=== PATIENT | male | born 1990 | race Caucasian/White ===

== ENCOUNTER 2017-04-24 19:26 | Observation (INO) | payer MEDICAID ==
[2017-04-24] MEDS ORDERED: Ketorolac 30 MG/ML SDV IM ONE (20:03)
[2017-04-24] MEDS ORDERED: oxyCODONE 5 MG Tab PO ONE (20:03)
[2017-04-24] MEDS ORDERED: oxyCODONE 5 MG Tab ONE (20:09)
[2017-04-24] MEDS ORDERED: Ketorolac 30 MG/ML SDV ONE (20:09)
--- NOTE | 2017-04-24 20:14 | EDM.PDOC ---
ED HPI GENERAL MEDICAL PROBLEM - General Chief Complaint: Lower Extremity Injury/Pain Stated Complaint: INJURY TO RT LEG FROM FALL Time Seen by Provider: 04/24/17 19:45 Source of Information: Reports: Patient History Limitations: Reports: No Limitations - History of Present Illness INITIAL COMMENTS - FREE TEXT/NARRATIVE: This is a 26yo M here for a right lower leg injury. He stepped off a curb last night around 9pm and sprained his ankle. He went home and continued to go to work in the AM for over 10 hours and comes in tonight with increased ankle and calf swelling with constant pain and pressure. Patient denies toe numbness or tingling at this time. Patient able to bear full weight but has a high tolerance for pain. There is swelling of the lower leg to the foot. Denies any chest pain, no shortness of breath and no other concerns. Onset: Gradual Duration: Day(s): Location: Reports: Lower Extremity, Right Quality: Reports: Ache Severity: Mild Improves with: Reports: None Worsens with: Reports: Movement Associated Symptoms: Reports: No Other Symptoms Right Ankle Pain Score (Numeric/FACES): 7 - Related Data Allergies Allergy/AdvReac Type Severity Reaction Status Date / Time amoxicillin Allergy Rash Verified 08/21/15 13:34 Penicillins Allergy Rash Verified 08/21/15 13:34 Home Meds: Home Meds ASA/Acetaminophn/Mag/ALH/Caff [Vanquish] 1 each PO Q4HR PRN 11/06/15 [History] Past Medical History HEENT History: Reports: None Gastrointestinal History: Reports: Diverticulosis Other Gastrointestinal History: Inguinal hernia repair 2005 Genitourinary History: Reports: Renal Calculus Other Genitourinary History: kidney stones, lithotripsy with stent that was removed in right kidney 2010 - Past Surgical History GI Surgical History: Reports: Hernia Repair/Other Male Surgical History: Reports: Kidney Stone Extraction, Lithotripsy (ESWL), Renal Calculus Social & Family History - Family History : Reports: Renal Calculus - Tobacco Use Smoking Status *Q: Never Smoker Years of Tobacco use: 4 Packs/Tins Daily: 0.5 Used Tobacco, but Quit: No Second Hand Smoke Exposure: No - Alcohol Use Days Per Week of Alcohol Use: 1 Number of Drinks Per Day: 2 Total Drinks Per Week: 2 - Recreational Drug Use Recreational Drug Use: No Review of Systems - Review of Systems Review Of Systems: ROS reveals no pertinent complaints other than HPI. ED EXAM, GENERAL - Physical Exam Exam: See Below Exam Limited By: No Limitations General Appearance: Alert, WD/WN, No Apparent Distress Eye Exam: Bilateral Eye: EOMI, PERRL Nose: Normal Inspection Throat/Mouth: Normal Inspection Head: Atraumatic, Normocephalic Neck: Normal Inspection Respiratory/Chest: No Respiratory Distress Cardiovascular: Normal Peripheral Pulses Peripheral Pulses: 2+: Posterior Tibial (L), Posterior Tibial (R), Dorsalis Pedis (L), Dorsalis Pedis (R) GI/Abdominal: Normal Bowel Sounds Extremities: Joint Swelling, Leg Pain, Increased Warmth Neurological: Alert, Oriented, CN II-XII Intact, No Motor/Sensory Deficits Psychiatric: Normal Affect, Normal Mood Skin Exam: Ecchymosis, Increased Warmth Course - Vital Signs Last Recorded V/S: Last Vital Signs Temp 36.8 C 04/24/17 19:50 Pulse 92 04/24/17 19:50 Resp 20 04/24/17 19:50 BP 141/83 H 04/24/17 19:50 Pulse Ox 98 04/24/17 19:50 - Orders/Labs/Meds Orders: Active Orders 24 hr Category Date Time Status Ankle wo Cont Lt [CT] Stat Exams 04/24/17 20:01 Stop Req Lower Extremity wo Cont Rt [CT] Stat Exams 04/24/17 20:01 Taken Meds: Medications Discontinued Medications Generic Name Dose Route Start Last Admin Trade Name Laura PRN Reason Stop Dose Admin Ketorolac Tromethamine 30 mg 04/24/17 20:03 04/24/17 20:05 Toradol IM 04/24/17 20:04 30 mg ONETIME ONE Administration Ketorolac Tromethamine Confirm 04/24/17 20:09 04/24/17 20:59 Toradol Administered 04/24/17 20:10 Not Given Dose 30 mg .ROUTE .STK-MED ONE Morphine Sulfate Confirm 04/24/17 20:57 04/24/17 20:56 Morphine Administered 04/24/17 20:58 2 mg Dose Administration 2 mg .ROUTE .STK-MED ONE Morphine Sulfate 2 mg 04/24/17 20:55 04/24/17 20:57 Morphine IM 04/24/17 20:56 Not Given ONETIME ONE Oxycodone HCl 5 mg 04/24/17 20:03 04/24/17 20:05 Oxycodone PO 04/24/17 20:04 5 mg ONETIME ONE Administration Oxycodone HCl Confirm 04/24/17 20:09 04/24/17 20:59 Oxycodone Administered 04/24/17 20:10 Not Given Dose 5 mg .ROUTE .STK-MED ONE Departure - Departure Time of Disposition: 22:06 Disposition: Refer to Observation Condition: Undetermined Clinical Impression: Compartment syndrome of right lower extremity Qualifiers: Encounter type: initial encounter Qualified Code(s): T79.A21A - Traumatic compartment syndrome of right lower extremity, initial encounter High ankle sprain of right lower extremity Qualifiers: Encounter type: initial encounter Qualified Code(s): S93.431A - Sprain of tibiofibular ligament of right ankle, initial encounter - Discharge Information Referrals: PCP,None [Primary Care Provider] - Forms: ED Department Discharge - Problem List & Annotations (1) Compartment syndrome of right lower extremity SNOMED Code(s): 979985049 Code(s): T79.A21A - TRAUMATIC COMPARTMENT SYNDROME OF R LOW EXTREM, INIT Status: Suspected Priority: High Current Visit: Yes Qualifiers: Encounter type: initial encounter Qualified Code(s): T79.A21A - Traumatic compartment syndrome of right lower extremity, initial encounter (2) High ankle sprain of right lower extremity SNOMED Code(s): 32871987 Code(s): S93.431A - SPRAIN OF TIBIOFIBULAR LIGAMENT OF RIGHT ANKLE, INIT ENCNTR Status: Acute Priority: High Current Visit: Yes Qualifiers: Encounter type: initial encounter Qualified Code(s): S93.431A - Sprain of tibiofibular ligament of right ankle, initial encounter - Problem List Review Problem List Initiated/Reviewed/Updated: Yes - My Orders Last 24 Hours: My Active Orders 04/24/17 20:01 Ankle wo Cont Lt [CT] Stat Lower Extremity wo Cont Rt [CT] Stat - Assessment/Plan Last 24 Hours: My Active Orders 04/24/17 20:01 Ankle wo Cont Lt [CT] Stat Lower Extremity wo Cont Rt [CT] Stat Plan: Called and consulted Dr. Martinez. Discussed possibility of compartment syndrome. Discussed swelling of the right lower extremity and plan for close monitoring and if worsening symptoms we will transfer to ER in [place] for further workup. Discussed elevation, ice and monitoring of symptoms and swelling as observation at this time. Patient agrees with plan of care. We will monitor pain status and hold pain meds to assess severity and progression. Patient placed in observation for monitoring.
[2017-04-24] MEDS ORDERED: Morphine 2 MG/ML Syringe IM ONE ×2 (20:55→22:38)
[2017-04-24] MEDS ORDERED: Morphine 2 MG/ML Syringe ONE (20:57)
[2017-04-25 07:53] VITALS: BP 112/79
[2017-04-25] MEDS ORDERED: Acetaminophen/HYDROcodone 325-5 MG Tab PO ONE (08:42)
--- NOTE | 2017-04-25 09:08 | PCM.DCSUM1 ---
Discharge Summary - Discharge Data Discharge Date: 04/25/17 Discharge Disposition: Home, Self-Care 01 Condition: Fair - Discharge Diagnosis/Problem(s) (1) Compartment syndrome of right lower extremity SNOMED Code(s): 369632614 ICD Code: T79.A21A - TRAUMATIC COMPARTMENT SYNDROME OF R LOW EXTREM, INIT Status: Acute Priority: High Current Visit: Yes Qualifiers: Encounter type: initial encounter Qualified Code(s): T79.A21A - Traumatic compartment syndrome of right lower extremity, initial encounter (2) High ankle sprain of right lower extremity SNOMED Code(s): 85350402 ICD Code: S93.431A - SPRAIN OF TIBIOFIBULAR LIGAMENT OF RIGHT ANKLE, INIT ENCNTR Status: Acute Priority: High Current Visit: Yes Qualifiers: Encounter type: initial encounter Qualified Code(s): S93.431A - Sprain of tibiofibular ligament of right ankle, initial encounter - Patient Instructions Diet: Regular Diet as Tolerated Activity: Apply Ice, Elevate Extremity Driving: Do Not Drive Showering/Bathing: May Shower Notify Provider of: Fever, Increased Pain, Swelling and Redness, Drainage, Nausea and/or Vomiting - Discharge Plan Home Medications: Home Meds ASA/Acetaminophn/Mag/ALH/Caff [Vanquish] 1 each PO Q4HR PRN 11/06/15 [History] Patient Handouts: Compartment Syndrome of the Foot Forms: ED Department Discharge Referrals: PCP,None [Primary Care Provider] - - Discharge Summary/Plan Comment Discharge Summary/Plan Comment: Counseled on close monitoring and care. Discussed elevation and non-weight bearing status. F/u in clinic within 1 week. Pain meds prescribed and discussed stool softeners. - General Info Date of Service: 04/25/17 Functional Status: Reports: Pain Controlled, Tolerating Diet - Review of Systems General: Reports: No Symptoms HEENT: Reports: No Symptoms Pulmonary: Reports: No Symptoms Cardiovascular: Reports: No Symptoms Gastrointestinal: Reports: No Symptoms Genitourinary: Reports: No Symptoms Musculoskeletal: Reports: Leg Pain, Joint Swelling Skin: Reports: Bruising Neurological: Reports: Difficulty Walking, Weakness - Patient Data Vitals - Most Recent: Last Vital Signs Temp 36.8 C 04/25/17 07:47 Pulse 83 04/25/17 07:47 Resp 12 04/25/17 07:47 BP 112/79 04/25/17 07:47 Pulse Ox 99 04/25/17 07:47 Weight - Most Recent: 88.451 kg Med Orders - Current: Current Medications Discontinued Medications Hydrocodone Bitart/Acetaminophen ([place] 325-5 Mg) 1 tab PO ONETIME ONE Stop: 04/25/17 08:43 Ketorolac Tromethamine (Toradol) 30 mg IM ONETIME ONE Stop: 04/24/17 20:04 Last Admin: 04/24/17 20:05 Dose: 30 mg Ketorolac Tromethamine (Toradol) Confirm Administered Dose 30 mg .ROUTE .STK- MED ONE Stop: 04/24/17 20:10 Last Admin: 04/24/17 20:59 Dose: Not Given Morphine Sulfate (Morphine) Confirm Administered Dose 2 mg .ROUTE .STK-MED ONE Stop: 04/24/17 20:58 Last Admin: 04/24/17 20:56 Dose: 2 mg Morphine Sulfate (Morphine) 2 mg IM ONETIME ONE Stop: 04/24/17 20:56 Last Admin: 04/24/17 20:57 Dose: Not Given Morphine Sulfate (Morphine) 2 mg IM ONETIME ONE Stop: 04/24/17 22:39 Last Admin: 04/24/17 22:45 Dose: 2 mg Oxycodone HCl (Oxycodone) 5 mg PO ONETIME ONE Stop: 04/24/17 20:04 Last Admin: 04/24/17 20:05 Dose: 5 mg Oxycodone HCl (Oxycodone) Confirm Administered Dose 5 mg .ROUTE .STK-MED ONE Stop: 04/24/17 20:10 Last Admin: 04/24/17 20:59 Dose: Not Given - Exam General: Reports: Alert, Oriented HEENT: Reports: Pupils Equal Neck: Reports: Supple Lungs: Reports: Clear to Auscultation, Normal Respiratory Effort Cardiovascular: Reports: Regular Rate, Regular Rhythm GI/Abdominal Exam: Normal Bowel Sounds Extremities: Leg Pain, Other (bruising and swelling of the right ankle - improved swelling and tenderness from 12/09 to 10) Neurological: Reports: No New Focal Deficit, Other (improved mobility of toes) *Q Meaningful Use (DIS) - VTE *Q VTE Criteria *Q: - Stroke *Q Stroke Criteria *Q: - AMI *Q AMI Criteria *Q:
--- NOTE | 2017-04-25 11:12 | CT ---
DATE OF SERVICE: 04/24/2017 CLINICAL DATA: Rule out compartment syndrome. RIGHT LOWER LEG CT Multislice axial acquisition from above the knee to the ankle was performed. Axial images and sagittal and coronal reformations are reviewed. No acute fracture or dislocation. There is a small sclerotic lesion within the talus, most likely representing a bone island. No other lytic or blastic bone lesions. There is a subtle area of increased density within the region of the medial head of the gastrocnemius muscle and soleus muscle. If the patient has a history of trauma, the possibility of muscle hemorrhage should be considered. No other soft tissue abnormalities. No focal fluid collections. I do not see any other significant findings. [id number] [facility]
== END 2017-04-25 09:25 | disposition home or self-care (01) ==
LOC: LB.ED 19:26 → UNDOADMOB 22:05 → LB.MS 22:05 → LB.ED 22:05 → LB.MS 04-25 07:20
PROVIDERS: ADMIT Family Medicine; ATTEND Family Medicine
DX: T79.A21A Traumatic compartment syndrome of right lower extremity, initial encounter (principal); S93.431A Sprain of tibiofibular ligament of right ankle, initial encounter; K57.30 Diverticulosis of large intestine without perforation or abscess without bleeding; Z88.0 Allergy status to penicillin; Z98.890 Other specified postprocedural states; Z87.442 Personal history of urinary calculi; W19.XXXA Unspecified fall, initial encounter
CPT/HCPCS: 73700; 96372; 99284; A9270; J1885; J2270; G0378

== ENCOUNTER 2017-04-26 20:38 | Emergency (ER) | payer MEDICAID ==
[2017-04-26] MEDS ORDERED: Cephalexin 500 MG Cap ONE (21:00)
[2017-04-26] MEDS ORDERED: cefTRIAXone 1 GM Vial IM ONE (21:15)
[2017-04-26] MEDS ORDERED: cefTRIAXone 1 GM Vial ONE (21:19)
--- NOTE | 2017-04-27 02:07 | ER ---
HISTORY OF PRESENT ILLNESS: A 26-year-old male here with complaints of increase in swelling and redness involving his right ankle and lower leg. The patient twisted it last Saturday evening. He then proceeded to work a 10-hour shift. 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 He states he had a hard time getting his boot off after this. He did come into the emergency room where imaging studies were done. There was no fracture. The patient was kept overnight in the hospital and went home the next day. He has been keeping it elevated, applying ice frequently, and taking hydrocodone as needed. The patient tells me that he is in lot of pain at times but he has only taken 4 tablets so far and that was in the last 3 days. The patient states that he has been a good patient over the last 24 hours, keeping his foot elevated most of the day and not doing any other activity. OBJECTIVE: GENERAL APPEARANCE: The patient is awake and alert. He is in no respiratory distress. VITAL SIGNS: Reviewed as listed. EXTREMITIES: Examination of the right foot reveals moderate swelling is still present. There is bruising on both sides of the foot down to the fat pad area and some bruising at the base of the toes. The toes are cool to touch, but they are on both feet. Capillary refill is good. He does have an erythematous macular rash on the lateral side of the midfoot. There are a couple of very small abrasions in this area as well. This area is warm to touch and tender with touch. He also has a linear macular erythematous rash on the medial side of his lower leg up to the knee. This is also quite tender with touch consistent with cellulitis. DIAGNOSES: 1. Ankle sprain recheck. 2. Developing cellulitis. TREATMENT PLAN: Rocephin 1 g was given IM. We monitored the patient for 20 minutes, and he did not have any type of reaction. I will send him home on Keflex 500 mg t.i.d. taking his first dose tomorrow morning. He is to increase his hydrocodone use. I advised the patient to take 1 or 2 tablets every 6 hours for the next couple of days weaning down on it at that point, as tolerated. He can also take ibuprofen 600 mg twice a day. He is to monitor closely the area of rash. The rash now stops at the knee level. If it goes in a proximal direction up the medial side of his thigh, he is to come back into the hospital tomorrow or as needed. The patient is here with his . They have no further questions and agree with the treatment plan. SONYA/JUSTUS /[id number]
[2017-04-27 05:33] VITALS: BP 163/86
== END 2017-04-26 22:00 | disposition home or self-care (01) ==
LOC: LB.ED 20:38
DX: S93.401D Sprain of unspecified ligament of right ankle, subsequent encounter (principal); L03.115 Cellulitis of right lower limb; X50.1XXD Overexertion from prolonged static or awkward postures, subsequent encounter
CPT/HCPCS: 96372; 99283; A9270; J0696

== ENCOUNTER 2017-05-05 10:46 | Emergency (ER) | payer MEDICAID ==
[2017-05-05] MEDS ORDERED: Ketorolac 60 MG/2 ML SDV IM ONE (12:27)
[2017-05-05] MEDS ORDERED: Ketorolac 60 MG/2 ML SDV ONE (12:33)
--- NOTE | 2017-05-05 13:05 | EDM.PDOC ---
ED HPI GENERAL MEDICAL PROBLEM - General Chief Complaint: General Stated Complaint: RT ANKLE INJ. NO BETTER Time Seen by Provider: 05/05/17 12:30 Source of Information: Reports: Patient History Limitations: Reports: No Limitations - History of Present Illness INITIAL COMMENTS - FREE TEXT/NARRATIVE: Patient is a 26 year old man who fell off a curb on 04-26-17 and he rolled his right ankle bad. He was admitted on 05-02-[address] Rivera for a possible compartment syndrome but the pain and swelling improved with ice and elevation. He went home and was told to come back if the pain and swelling reoccurred. Yesterday the right lower leg and calf started to swell again and became painful , so he is here for further evaluation. Onset: Gradual Onset Date: 04/26/17 Onset Time: 22:30 Duration: Day(s): (9), Waxing/Waning Location: Reports: Lower Extremity, Right Quality: Reports: Ache, Same as Previous Episode, Throbbing Severity: Moderate Improves with: Reports: None Worsens with: Reports: None Context: Reports: Trauma Associated Symptoms: Reports: No Other Symptoms - Related Data Allergies Allergy/AdvReac Type Severity Reaction Status Date / Time amoxicillin Allergy Rash Verified 04/26/17 21:10 Penicillins Allergy Rash Verified 04/26/17 21:10 Home Meds: Home Meds ASA/Acetaminophn/Mag/ALH/Caff [Vanquish] 1 each PO Q4HR PRN 11/06/15 [History] Past Medical History HEENT History: Reports: None Gastrointestinal History: Reports: Diverticulosis Other Gastrointestinal History: Inguinal hernia repair 2005 Genitourinary History: Reports: Renal Calculus Other Genitourinary History: kidney stones, lithotripsy with stent that was removed in right kidney 2010 - Past Surgical History HEENT Surgical History: Reports: None GI Surgical History: Reports: Hernia Repair/Other Male Surgical History: Reports: Kidney Stone Extraction, Lithotripsy (ESWL), Renal Calculus Social & Family History - Family History Family Medical History: Unobtainable : Reports: Renal Calculus - Tobacco Use Smoking Status *Q: Current Some Day Smoker Years of Tobacco use: 10 Packs/Tins Daily: 0.5 Used Tobacco, but Quit: No Second Hand Smoke Exposure: No - Caffeine Use Caffeine Use: Reports: Coffee Caffeine Use Comment: 2-3 cups a day - Alcohol Use Days Per Week of Alcohol Use: 2 Number of Drinks Per Day: 2 Total Drinks Per Week: 4 - Recreational Drug Use Recreational Drug Use: No ED ROS GENERAL - Review of Systems Review Of Systems: See Below Constitutional: Reports: No Symptoms HEENT: Reports: No Symptoms Respiratory: Reports: No Symptoms Cardiovascular: Reports: No Symptoms Endocrine: Reports: No Symptoms GI/Abdominal: Reports: No Symptoms : Reports: No Symptoms Musculoskeletal: Reports: No Symptoms Skin: Reports: No Symptoms Neurological: Reports: No Symptoms Psychiatric: Reports: No Symptoms Hematologic/Lymphatic: Reports: No Symptoms ED EXAM, GENERAL - Physical Exam Exam: See Below Exam Limited By: No Limitations General Appearance: Alert, WD/WN, No Apparent Distress Eye Exam: Bilateral Eye: EOMI, Normal Fundi, Normal Inspection, PERRL Ears: Normal External Exam Ear Exam: Bilateral Ear: Auricle Normal, Canal Normal, TM normal Nose: Normal Inspection, Normal Mucosa, No Blood Throat/Mouth: Normal Inspection, Normal Lips, Normal Teeth, Normal Gums, Normal Oropharynx, Normal Voice, No Airway Compromise Head: Atraumatic, Normocephalic Neck: Normal Inspection, Supple, Non-Tender, Full Range of Motion Respiratory/Chest: No Respiratory Distress, Lungs Clear, Normal Breath Sounds, No Accessory Muscle Use, Chest Non-Tender Cardiovascular: Normal Peripheral Pulses, Regular Rate, Rhythm, No Edema, No Gallop, No JVD, No Murmur, No Rub Peripheral Pulses: 4+: Posterior Tibial (L), Posterior Tibial (R), Dorsalis Pedis (L), Dorsalis Pedis (R) GI/Abdominal: Normal Bowel Sounds, Soft, Non-Tender, No Organomegaly, No Distention, No Abnormal Bruit, No Mass Back Exam: Normal Inspection, Full Range of Motion, NT Extremities: Pedal Edema (Right lower leg), Joint Swelling (Right ankle), Shekhar' s Sign, Leg Pain, Limited Range of Motion Neurological: Alert, Oriented, CN II-XII Intact, Normal Cognition, Normal Gait, Normal Reflexes, No Motor/Sensory Deficits Psychiatric: Normal Affect, Normal Mood Skin Exam: Warm, Dry, Intact, Normal Color, No Rash Lymphatic: No Adenopathy Course - Vital Signs Text/Narrative:: Uneventful ED course. His pain was 6/10 on admission in the right lower leg and fell to 1/10 with 60 mg of IM Toradol. He will be transferred to [facility] for further evaluation with Ultrasound and possible Orthopedics. He will go by ground BLS ambulance. - Orders/Labs/Meds Labs: Laboratory Tests 05/05/17 05/05/17 05/05/17 Range/Units 11:45 11:45 11:45 WBC 9.4 (4.0-11.0) K/uL RBC 5.15 (4.50-6.50) M/uL Hgb 16.2 (13.0-18.0) g/dL Hct 45.5 (40.0-54.0) % MCV 88 (76-96) fL MCH 31.5 (27.0-32.0) pg MCHC 35.6 H (31.0-35.0) g/dL RDW 12.6 (11.0-16.0) % Plt Count 345 (150-400) K/uL MPV 9.2 (6.0-10.0) fL Neut % (Auto) 62.2 (45.0-70.0) % Lymph % (Auto) 23.7 (20.0-40.0) % [place] % (Auto) 9.5 (3.0-10.0) % Eos % (Auto) 4.3 (1.0-5.0) % Baso % (Auto) 0.3 (0.0-0.5) % Neut # (Auto) 5.81 (2.00-7.50) K/uL Lymph # (Auto) 2.22 (1.50-4.00) K/uL Dup[place] # (Auto) 0.89 H (0.20-0.80) K/uL Eos # (Auto) 0.40 (0.04-0.40) K/uL Baso # (Auto) 0.03 (0.02-0.10) K/uL D-Dimer, Quantitative 602 H (0-400) ng/mL Sodium 139 (136-145) mmol/L Potassium 3.9 (3.5-5.1) mmol/L Chloride 102 (98-107) mmol/L Carbon Dioxide 24.9 (21.0-32.0) mmol/L Anion Gap 16.0 H (5.0-15.0) mmol/L BUN 13 (8-26) mg/dL Creatinine 0.90 (0.70-1.30) mg/dL Est Cr Clr Drug Dosing TNP Estimated GFR (MDRD) > 60 (>60) MLS/MIN BUN/Creatinine Ratio 14.4 (6-25) Glucose 106 H (74-100) mg/dL Calcium 9.0 (8.5-10.1) mg/dL Total Bilirubin 0.6 (0.0-1.0) mg/dL AST 21 (15-37) U/L ALT 37 (12-78) U/L Alkaline Phosphatase 53 (46-116) U/L Total Protein 8.3 H (6.4-8.2) g/dL Albumin 4.3 (3.4-5.0) g/dL Globulin 4.0 (2.2-4.2) g/dL Albumin/Globulin Ratio 1.1 (0.8-2.0) Meds: Medications Discontinued Medications Generic Name Dose Route Start Last Admin Trade Name Ajayq PRN Reason Stop Dose Admin Ketorolac Tromethamine 60 mg 05/05/17 12:27 05/05/17 12:35 Toradol IM 05/05/17 12:28 60 mg ONETIME ONE Administration Ketorolac Tromethamine Confirm 05/05/17 12:33 Toradol Administered 05/05/17 12:34 Dose 60 mg .ROUTE .STK-MED ONE Departure - Departure Time of Disposition: 13:10 Disposition: DC/Tfer to Acute Hospital 02 Condition: Good Clinical Impression: Severe sprain of right ankle High ankle sprain of right lower extremity Qualifiers: Encounter type: initial encounter Qualified Code(s): S93.431A - Sprain of tibiofibular ligament of right ankle, initial encounter - Discharge Information Referrals: PCP,None [Primary Care Provider] -
[2017-05-05 13:10] VITALS: BP 119/73
[2017-05-05] MEDS ORDERED: Ondansetron 4 MG Tab.DIS PO ONE (13:34)
[2017-05-05] MEDS ORDERED: Acetaminophen/HYDROcodone 325-10 MG Tab PO ONE (13:34)
[2017-05-05] MEDS ORDERED: Ondansetron 4 MG Tab.DIS ONE (13:37)
[2017-05-05] MEDS ORDERED: Acetaminophen/HYDROcodone 325-10 MG Tab ONE (13:37)
== END 2017-05-05 13:35 ==
LOC: LB.ED 10:46
DX: S93.431A Sprain of tibiofibular ligament of right ankle, initial encounter (principal); F17.210 Nicotine dependence, cigarettes, uncomplicated; Z88.0 Allergy status to penicillin; Z88.1 Allergy status to other antibiotic agents; W10.1XXA Fall (on)(from) sidewalk curb, initial encounter
CPT/HCPCS: 36415; 80053; 85025; 85379; 96372; 99284; A0425; A0429; A9270; J1885